=== PATIENT | female | born 1955 | race Caucasian/White ===

== ENCOUNTER → 2017-04-20 | Emergency (ER) | payer OTHER ==
[~2017-04-20] VITALS: Ht 157.5 cm; Wt 59.4 kg
[~2017-04-20] MED LIST: AMBIEN10 MG PO; AMBIEN5 MG PO; ASA81 MG; CATAFLAM50 MG PO; CIPROFLOXACIN750 MG PO; CLONAZEPAM1 MG PO; CLONAZEPAM2 MG PO; CYMBALTA20 MG PO; DOCUSATE SODIU100 MG PO; DOLOGEN CAPLET1 EACH PO; FOSAMAX5 MG; GABAPENTIN800 MG PO; INTESTINEX1 CAP PO; INTESTINEX680 MG PO; KETO10TA2 PO; KLONOPIN1 MG/TAB; LEVSIN/SL0.125 MG PO; LIPITOR40 MG PO; MEDROL4 MG PO; MUPIROCIN15 GM TP; ORPH100T PO; OXYCODONE; PERCOCET 5/3251 TAB PO; PHENOBARBITAL; PROTONIX20 MG; PROTONIX20 MG PO; PROVENTIL S1 ML/5 MG IH; PROVENTIL3 ML/2.5 M IH; RELPAX20 MG; REPLAX PO; SINGULAIR10 MG PO; SYMBICORT 16010.2 GM IH; TAGAMET300 MG PO; TIZANIDINE HCL2 MG PO; TUSICOF LIQUID120 ML PO; ULTRAM50 MG; ZANAFLEX2 M1 PO; ZANTAC 7575 MG PO; ZANTAC150 MG PO; ZANTAC300 MG PO; ZOCOR5 MG PO; [UNRECOGNIZED DRUG - OTHER]
== END | disposition home or self-care (01) ==
LOC: ER 15:02
DX: K29.70 Gastritis, unspecified, without bleeding (principal)

== ENCOUNTER 2017-04-24 08:53 | Emergency (ER) | payer OTHER ==
[~2017-04-24] VITALS: Ht 157.5 cm; Wt 59.4 kg
[2017-04-24] MEDS ORDERED: CARAFATE1 GM (09:09)
== END 2017-04-24 14:29 | disposition home or self-care (01) ==
LOC: ER 08:53
DX: K58.8 Other irritable bowel syndrome (principal); R10.84 Generalized abdominal pain

== ENCOUNTER 2017-06-15 22:39 | Emergency (ER) | payer OTHER ==
[~2017-06-15] VITALS: Ht 160 cm; Wt 52.2 kg
[~2017-06-15 22:39] MED LIST changes: +CARAFATE1 GM; +ORPHENADRINE C100 MG PO
[2017-06-16] MEDS ORDERED: PROTONIX40 MG PO (06:28)
[2017-06-16] MEDS ORDERED: PHENERGAN25 MG PO (06:28)
== END 2017-06-16 06:30 | disposition home or self-care (01) ==
LOC: ER 22:39
DX: K29.60 Other gastritis without bleeding (principal)

== ENCOUNTER 2017-06-17 10:02 | Emergency (ER) | payer OTHER ==
[~2017-06-17] VITALS: Ht 160 cm; Wt 59.0 kg
[~2017-06-17 10:02] MED LIST changes: +PHENERGAN25 MG PO; +PROTONIX40 MG PO
== END 2017-06-17 14:14 | disposition home or self-care (01) ==
LOC: ER 10:02
DX: K29.70 Gastritis, unspecified, without bleeding (principal)

== ENCOUNTER 2017-06-25 23:19 | Emergency (ER) | payer OTHER ==
[~2017-06-25] VITALS: Ht 160 cm; Wt 65.8 kg
== END 2017-06-26 09:16 | disposition home or self-care (01) ==
LOC: ER 23:19
DX: N20.0 Calculus of kidney (principal); R19.02 Left upper quadrant abdominal swelling, mass and lump; K58.9 Irritable bowel syndrome, unspecified; K29.70 Gastritis, unspecified, without bleeding; R10.12 Left upper quadrant pain; R10.32 Left lower quadrant pain; R11.0 Nausea

== ENCOUNTER 2017-08-09 09:31 | Emergency (ER) | payer OTHER ==
[~2017-08-09] VITALS: Ht 160 cm; Wt 58.1 kg
[2017-08-09] MEDS ORDERED: ZANTAC150 M3 (10:17)
[2017-08-09] MEDS ORDERED: PROBIOTIC1 EAC1 (10:17)
[2017-08-09] MEDS ORDERED: ZEGERID 20 MG1 EACH (10:17)
[2017-08-09] MEDS ORDERED: CRESTOR20 MG (10:18)
== END 2017-08-09 13:30 | disposition home or self-care (01) ==
LOC: ER 09:31
DX: K29.60 Other gastritis without bleeding (principal); R51 Headache; F41.8 Other specified anxiety disorders

== ENCOUNTER → 2017-08-16 | Emergency (ER) | payer OTHER ==
[~2017-08-16] VITALS: Ht 160 cm; Wt 58.1 kg
[~2017-08-16] MED LIST changes: +CRESTOR20 MG; +PROBIOTIC1 EAC1; +SINGULAIR10 MG; +ZANTAC150 M3; +ZEGERID 20 MG1 EACH
== END | disposition home or self-care (01) ==
LOC: ER 17:47
DX: K29.60 Other gastritis without bleeding (principal)

== ENCOUNTER 2017-09-01 10:35 | Emergency (ER) | payer OTHER ==
[~2017-09-01] VITALS: Ht 152.4 cm; Wt 54.9 kg
== END 2017-09-01 15:57 | disposition home or self-care (01) ==
LOC: ER 10:35
DX: K29.00 Acute gastritis without bleeding (principal)

== ENCOUNTER → 2017-09-03 | Emergency (ER) | payer OTHER ==
[~2017-09-03] VITALS: Ht 170.2 cm; Wt 63.5 kg
== END | disposition home or self-care (01) ==
LOC: ER 10:57
DX: K29.00 Acute gastritis without bleeding (principal)

== ENCOUNTER 2017-09-22 17:06 | Emergency (ER) | payer OTHER ==
[~2017-09-22] VITALS: Ht 160 cm; Wt 54.0 kg
== END 2017-09-22 19:54 | disposition home or self-care (01) ==
LOC: ER 17:06
DX: N30.81 Other cystitis with hematuria (principal)

== ENCOUNTER 2017-11-02 10:53 | Emergency (ER) | payer OTHER ==
[~2017-11-02] VITALS: Ht 152.4 cm; Wt 52.2 kg
== END 2017-11-02 16:55 | disposition home or self-care (01) ==
LOC: ER 10:53
DX: R51 Headache (principal); R11.0 Nausea

== ENCOUNTER 2017-11-03 12:31 | Emergency (ER) | payer OTHER ==
[~2017-11-03] VITALS: Ht 160 cm; Wt 54.4 kg
== END 2017-11-03 16:37 | disposition home or self-care (01) ==
LOC: ER 12:31
DX: K21.9 Gastro-esophageal reflux disease without esophagitis (principal)

== ENCOUNTER 2017-11-11 16:48 | Emergency (ER) | payer OTHER ==
[~2017-11-11] VITALS: Ht 160 cm; Wt 54.0 kg
== END 2017-11-11 20:08 | disposition home or self-care (01) ==
LOC: ER 16:48
DX: K29.60 Other gastritis without bleeding (principal); K58.8 Other irritable bowel syndrome; M54.5 Low back pain

== ENCOUNTER 2017-11-18 17:09 | Emergency (ER) | payer OTHER ==
[~2017-11-18] VITALS: Ht 157.5 cm; Wt 54.4 kg
== END 2017-11-18 19:15 | disposition home or self-care (01) ==
LOC: ER 17:09
DX: K29.70 Gastritis, unspecified, without bleeding (principal); M54.89 Other dorsalgia

== ENCOUNTER 2017-12-04 07:45 | Emergency (ER) | payer OTHER ==
[~2017-12-04] VITALS: Ht 160 cm; Wt 54.4 kg
== END 2017-12-04 16:29 | disposition home or self-care (01) ==
LOC: ER 07:45
DX: K52.89 Other specified noninfective gastroenteritis and colitis (principal)

== ENCOUNTER 2017-12-28 15:53 | Emergency (ER) | payer OTHER ==
[~2017-12-28] VITALS: Ht 160 cm; Wt 54.4 kg
== END 2017-12-28 18:53 | disposition home or self-care (01) ==
LOC: ER 15:53
DX: M94.0 Chondrocostal junction syndrome [Tietze] (principal)

== ENCOUNTER 2018-01-02 09:09 | Emergency (ER) | payer OTHER ==
[~2018-01-02] VITALS: Ht 160 cm; Wt 56.7 kg
== END 2018-01-02 10:23 | disposition home or self-care (01) ==
LOC: ER 09:09
DX: M94.0 Chondrocostal junction syndrome [Tietze] (principal); R51 Headache

== ENCOUNTER 2018-01-04 10:56 | Outpatient (CLI) | payer OTHER | END 2018-01-04 16:52 | disposition home or self-care (01) | LOC: RAD 10:56 | DX: N20.0 Calculus of kidney (principal) ==

== ENCOUNTER 2018-01-04 14:47 | Outpatient (CLI) | payer OTHER | END 2018-01-04 14:54 | disposition home or self-care (01) | LOC: RAD 14:47 | DX: J44.9 Chronic obstructive pulmonary disease, unspecified (principal) ==

== ENCOUNTER 2018-01-07 10:10 | Emergency (ER) | payer OTHER ==
[~2018-01-07] VITALS: Ht 160 cm; Wt 54.4 kg
== END 2018-01-07 16:46 | disposition home or self-care (01) ==
LOC: ER 10:10
DX: K29.70 Gastritis, unspecified, without bleeding (principal)

== ENCOUNTER → 2018-02-08 | Emergency (ER) | payer OTHER ==
[~2018-02-08] VITALS: Ht 160 cm; Wt 54.9 kg
[~2018-02-08] MED LIST changes: +METOPROLOL ER-1 EAC2; +TUSSI PRES-B L120 M1 PO; +ZITHROMAX TRI-500 MG PO
== END | disposition home or self-care (01) ==
LOC: ER 09:40
DX: B34.9 Viral infection, unspecified (principal)

== ENCOUNTER 2018-02-27 09:10 | Emergency (ER) | payer OTHER ==
[~2018-02-27] VITALS: Ht 160 cm; Wt 54.4 kg
== END 2018-02-27 11:03 | disposition home or self-care (01) ==
LOC: ER 09:10
DX: J06.9 Acute upper respiratory infection, unspecified (principal)

== ENCOUNTER 2018-03-01 07:51 | Emergency (ER) | payer OTHER ==
[~2018-03-01] VITALS: Ht 160 cm; Wt 54.4 kg
[2018-03-01] MEDS ORDERED: SYMBICORT 16010.2 GM (08:00)
[2018-03-01] MEDS ORDERED: RELPAX40 MG PO (08:00)
[2018-03-01] MEDS ORDERED: PHENERGAN25 MG PO (08:01)
[2018-03-01] MEDS ORDERED: ZANTAC150 M3 PO (08:01)
== END 2018-03-01 11:46 | disposition home or self-care (01) ==
LOC: ER 07:51
DX: B34.9 Viral infection, unspecified (principal)

== ENCOUNTER 2018-06-07 06:07 | Emergency (ER) | payer OTHER ==
[~2018-06-07] VITALS: Ht 160 cm; Wt 61.2 kg
[~2018-06-07 06:07] MED LIST changes: +RELPAX40 MG PO; +SYMBICORT 16010.2 GM; +ZANTAC150 M3 PO
== END 2018-06-07 11:04 | disposition home or self-care (01) ==
LOC: ER 06:07
DX: K52.89 Other specified noninfective gastroenteritis and colitis (principal)

== ENCOUNTER 2018-11-07 06:19 | Emergency (ER) | payer OTHER ==
[~2018-11-07] VITALS: Ht 160 cm; Wt 58.1 kg
[~2018-11-07 06:19] MED LIST changes: +TRAMADOL HCL50 MG PO
== END 2018-11-07 14:06 | disposition home or self-care (01) ==
LOC: ER 06:19
DX: M54.89 Other dorsalgia (principal); K52.89 Other specified noninfective gastroenteritis and colitis

== ENCOUNTER 2018-12-23 06:57 | Emergency (ER) | payer OTHER ==
[~2018-12-23] VITALS: Ht 160 cm; Wt 64.4 kg
== END 2018-12-23 17:50 | disposition home or self-care (01) ==
LOC: ER 06:57
DX: G44.229 Chronic tension-type headache, not intractable (principal); R05 Cough; L92.8 Other granulomatous disorders of the skin and subcutaneous tissue; R91.1 Solitary pulmonary nodule

== ENCOUNTER 2019-05-20 11:53 | Emergency (ER) | payer OTHER ==
[~2019-05-20] VITALS: Ht 160 cm; Wt 61.2 kg
== END 2019-05-20 19:44 | disposition home or self-care (01) ==
LOC: ER 11:53
DX: K29.60 Other gastritis without bleeding (principal); M54.5 Low back pain

== ENCOUNTER 2019-05-26 09:23 | Emergency (ER) | payer OTHER ==
[~2019-05-26] VITALS: Ht 160 cm; Wt 61.2 kg
[2019-05-26] MEDS ORDERED: TOPROL XL25 M1 (09:46)
[2019-05-26] MEDS ORDERED: CRESTOR5 MG (09:47)
[2019-05-26] MEDS ORDERED: CIPRO500 MG PO (14:51)
[2019-05-26] MEDS ORDERED: PEPCID AC20 MG PO (14:51)
== END 2019-05-26 15:38 | disposition home or self-care (01) ==
LOC: ER 09:23
DX: R30.0 Dysuria (principal); M54.5 Low back pain; M54.2 Cervicalgia

== ENCOUNTER 2019-06-24 14:06 | Emergency (ER) | payer OTHER ==
[~2019-06-24] VITALS: Ht 160 cm; Wt 59.0 kg
[~2019-06-24 14:06] MED LIST changes: +CIPRO500 MG PO; +CRESTOR5 MG; +PEPCID AC20 MG PO; +TOPROL XL25 M1
[2019-06-24] MEDS ORDERED: TENORMIN25 MG PO (14:41)
== END 2019-06-24 18:18 | disposition home or self-care (01) ==
LOC: ER 14:06
DX: J06.9 Acute upper respiratory infection, unspecified (principal); B34.9 Viral infection, unspecified

== ENCOUNTER → 2019-07-06 | Emergency (ER) | payer OTHER ==
[~2019-07-06] VITALS: Ht 160 cm; Wt 59.0 kg
[~2019-07-06] MED LIST changes: +TENORMIN25 MG PO
== END | disposition home or self-care (01) ==
LOC: ER 11:04
DX: K52.89 Other specified noninfective gastroenteritis and colitis (principal)

== ENCOUNTER 2019-08-21 09:09 | Emergency (ER) | payer OTHER ==
[~2019-08-21] VITALS: Ht 160 cm; Wt 61.2 kg
[2019-08-21] MEDS ORDERED: DICY20TA PO (09:54)
== END 2019-08-21 13:13 | disposition home or self-care (01) ==
LOC: ER 09:09
DX: R06.02 Shortness of breath (principal); R53.81 Other malaise

== ENCOUNTER 2019-09-06 10:58 | Emergency (ER) | payer OTHER ==
[~2019-09-06] VITALS: Ht 165.1 cm; Wt 81.6 kg
[~2019-09-06 10:58] MED LIST changes: +DICY20TA PO
[2019-09-06] MEDS ORDERED: KETO10TA2 PO (14:26)
[2019-09-06] MEDS ORDERED: NORFLEX100MG PO (14:26)
[2019-09-06] MEDS ORDERED: PEPCID AC20 MG PO (14:26)
== END 2019-09-06 14:40 | disposition home or self-care (01) ==
LOC: ER 10:58
DX: S70.12XA Contusion of left thigh, initial encounter (principal); S50.12XA Contusion of left forearm, initial encounter; S00.83XA Contusion of other part of head, initial encounter; M79.605 Pain in left leg; K29.60 Other gastritis without bleeding; Z03.818 Encounter for observation for suspected exposure to other biological agents ruled out; R53.81 Other malaise; W18.09XA Striking against other object with subsequent fall, initial encounter; Y93.89 Activity, other specified; Y92.89 Other specified places as the place of occurrence of the external cause; Y99.8 Other external cause status

== ENCOUNTER 2019-10-29 09:22 | Emergency (ER) | payer OTHER ==
[~2019-10-29] VITALS: Ht 160 cm; Wt 70.3 kg
[~2019-10-29 09:22] MED LIST changes: +NORFLEX100MG PO
== END 2019-10-29 12:05 | disposition home or self-care (01) ==
LOC: ER 09:22
DX: K29.60 Other gastritis without bleeding (principal); G89.11 Acute pain due to trauma; R51 Headache

== ENCOUNTER 2019-12-14 12:15 | Emergency (ER) | payer OTHER ==
[~2019-12-14] VITALS: Ht 160 cm; Wt 70.3 kg
== END 2019-12-14 15:59 | disposition home or self-care (01) ==
LOC: ER 12:15
DX: R53.81 Other malaise (principal); Z03.818 Encounter for observation for suspected exposure to other biological agents ruled out

== ENCOUNTER 2020-02-14 09:27 | Emergency (ER) | payer OTHER ==
[~2020-02-14] VITALS: Ht 154.9 cm; Wt 68.0 kg
[~2020-02-14 09:27] MED LIST changes: +ACETAMINOPHEN-1 EAC2 PO
[2020-02-14] MEDS ORDERED: CLONAZEPAM2 MG PO (09:36)
[2020-02-14] MEDS ORDERED: BELSOMRA10 MG PO (09:36)
[2020-02-14] MEDS ORDERED: ALENDRONATE SOD70 MG PO (09:36)
[2020-02-14] MEDS ORDERED: ARIPIPRAZOLE10 MG PO (09:36)
[2020-02-14] MEDS ORDERED: VITAMIN D3250 MCG PO (09:38)
[2020-02-14] MEDS ORDERED: NORFLEX100MG PO (14:23)
[2020-02-14] MEDS ORDERED: MEDROLPACK PO (14:36)
== END 2020-02-14 15:00 | disposition home or self-care (01) ==
LOC: ER 09:27
DX: G89.11 Acute pain due to trauma (principal); M54.5 Low back pain; M54.6 Pain in thoracic spine; M54.2 Cervicalgia

== ENCOUNTER 2020-03-02 09:49 | Emergency (ER) | payer OTHER ==
[~2020-03-02] VITALS: Ht 160 cm; Wt 68.0 kg
[~2020-03-02 09:49] MED LIST changes: +ALENDRONATE SOD70 MG PO; +ARIPIPRAZOLE10 MG PO; +BELSOMRA10 MG PO; +MEDROLPACK PO; +VITAMIN D3250 MCG PO
[2020-03-02] MEDS ORDERED: REPLAX (10:18)
[2020-03-08] MEDS ORDERED: PEPCID (17:31)
[2020-03-08] MEDS ORDERED: ALBUTEROL (17:31)
== END 2020-03-02 13:27 | disposition home or self-care (01) ==
LOC: ER 09:49
DX: K52.9 Noninfective gastroenteritis and colitis, unspecified (principal); Z03.818 Encounter for observation for suspected exposure to other biological agents ruled out

== ENCOUNTER → 2020-03-08 | Emergency (ER) | payer OTHER ==
[~2020-03-08] VITALS: Ht 160 cm; Wt 68.0 kg
[~2020-03-08] MED LIST changes: +ALBUTEROL; +MOBIC15 MG PO; +NORFLEC; +PEPCID; +REPLAX
== END | disposition left against medical advice (07) ==
LOC: ER 16:55
DX: R10.84 Generalized abdominal pain (principal); R07.89 Other chest pain; R11.2 Nausea with vomiting, unspecified; R19.7 Diarrhea, unspecified; R53.81 Other malaise

== ENCOUNTER 2020-03-10 09:45 | Emergency (ER) | payer OTHER ==
[~2020-03-10] VITALS: Ht 160 cm; Wt 63.5 kg
[~2020-03-10 09:45] MED LIST changes: -MOBIC15 MG PO; -NORFLEC
[2020-03-11] MEDS ORDERED: MOBIC15 MG PO (06:38)
[2020-03-11] MEDS ORDERED: CIPRO500 MG PO (06:38)
== END 2020-03-11 06:45 | disposition home or self-care (01) ==
LOC: ER 09:45
DX: N20.0 Calculus of kidney (principal); K59.09 Other constipation; Z03.818 Encounter for observation for suspected exposure to other biological agents ruled out

== ENCOUNTER 2020-03-24 05:58 | Emergency (ER) | payer OTHER ==
[~2020-03-24] VITALS: Ht 160 cm; Wt 68.0 kg
[~2020-03-24 05:58] MED LIST changes: +MOBIC15 MG PO
[2020-03-24] MEDS ORDERED: NORFLEC (06:22)
== END 2020-03-24 14:09 | disposition home or self-care (01) ==
LOC: ER 05:58
DX: R10.32 Left lower quadrant pain (principal)

== ENCOUNTER 2020-04-24 07:54 | Emergency (ER) | payer OTHER ==
[~2020-04-24] VITALS: Ht 162.6 cm; Wt 70.3 kg
[~2020-04-24 07:54] MED LIST changes: +NORFLEC
[2020-04-24] MEDS ORDERED: FAMOTIDINE40 MG PO (08:06)
[2020-04-24] MEDS ORDERED: ARIPIPRAZOLE10 MG PO (08:07)
[2020-04-24] MEDS ORDERED: RESTORIL30 MG PO (08:07)
[2020-05-08] MEDS ORDERED: PEPCID AC20 MG PO (23:19)
[2020-05-08] MEDS ORDERED: PROTONIX40 MG PO (23:19)
== END 2020-04-24 13:20 | disposition home or self-care (01) ==
LOC: ER 07:54
DX: K29.00 Acute gastritis without bleeding (principal); Z03.818 Encounter for observation for suspected exposure to other biological agents ruled out; R10.13 Epigastric pain

== ENCOUNTER 2020-04-29 05:40 | Emergency (ER) | payer OTHER ==
[~2020-04-29] VITALS: Ht 160 cm; Wt 68.9 kg
[~2020-04-29 05:40] MED LIST changes: +FAMOTIDINE40 MG PO; +RESTORIL30 MG PO
[2020-05-08] MEDS ORDERED: PROTONIX40 MG PO (23:19)
[2020-05-08] MEDS ORDERED: PEPCID AC20 MG PO (23:19)
== END 2020-04-29 11:09 | disposition home or self-care (01) ==
LOC: ER 05:40
DX: J44.9 Chronic obstructive pulmonary disease, unspecified (principal); K29.60 Other gastritis without bleeding; Z03.818 Encounter for observation for suspected exposure to other biological agents ruled out; R06.02 Shortness of breath; R05 Cough; R53.83 Other fatigue; F32.89 Other specified depressive episodes

== ENCOUNTER 2020-05-04 10:27 | Emergency (ER) | payer OTHER ==
[~2020-05-04] VITALS: Ht 160 cm; Wt 68.0 kg
[2020-05-04] MEDS ORDERED: AZITHROMYCIN250 MG PO (14:22)
[2020-05-05] MEDS ORDERED: CRESTOR10 MG (10:00)
[2020-05-05] MEDS ORDERED: RELPAX40 MG (10:01)
[2020-05-08] MEDS ORDERED: PROTONIX40 MG PO (23:19)
[2020-05-08] MEDS ORDERED: PEPCID AC20 MG PO (23:19)
== END 2020-05-04 14:48 | disposition home or self-care (01) ==
LOC: ER 10:27
DX: R50.9 Fever, unspecified (principal); R10.84 Generalized abdominal pain; R51.9 Headache, unspecified; F41.8 Other specified anxiety disorders; Z03.818 Encounter for observation for suspected exposure to other biological agents ruled out

== ENCOUNTER 2020-05-05 09:31 | Emergency (ER) | payer OTHER ==
[~2020-05-05] VITALS: Ht 160 cm; Wt 68.0 kg
[~2020-05-05 09:31] MED LIST changes: +AZITHROMYCIN250 MG PO
[2020-05-05] MEDS ORDERED: CRESTOR10 MG (10:00)
[2020-05-05] MEDS ORDERED: RELPAX40 MG (10:01)
[2020-05-08] MEDS ORDERED: PEPCID AC20 MG PO (23:19)
[2020-05-08] MEDS ORDERED: PROTONIX40 MG PO (23:19)
== END 2020-05-05 11:20 | disposition home or self-care (01) ==
LOC: ER 09:31
DX: K29.50 Unspecified chronic gastritis without bleeding (principal)

== ENCOUNTER 2020-05-07 04:39 | Emergency (ER) | payer OTHER ==
[~2020-05-07] VITALS: Ht 160 cm; Wt 68.0 kg
[~2020-05-07 04:39] MED LIST changes: +CRESTOR10 MG; +RELPAX40 MG
[2020-05-07] MEDS ORDERED: PEPCID AC20 MG PO (10:02)
[2020-05-07] MEDS ORDERED: PHENERGAN25 MG PO (10:02)
[2020-05-08] MEDS ORDERED: PEPCID AC20 MG PO (23:19)
[2020-05-08] MEDS ORDERED: PROTONIX40 MG PO (23:19)
== END 2020-05-07 10:42 | disposition home or self-care (01) ==
LOC: ER 04:39
DX: K29.60 Other gastritis without bleeding (principal); R10.33 Periumbilical pain; Z03.818 Encounter for observation for suspected exposure to other biological agents ruled out

== ENCOUNTER → 2020-05-08 | Emergency (ER) | payer OTHER ==
[~2020-05-08] VITALS: Ht 160 cm; Wt 68.0 kg
[~2020-05-08] MED LIST changes: +CARAFATE1 GM PO; +CELEBREX100 MG PO
== END | disposition home or self-care (01) ==
LOC: ER 16:35
DX: K29.60 Other gastritis without bleeding (principal)

== ENCOUNTER 2020-05-09 10:34 | Emergency (ER) | payer OTHER ==
[~2020-05-09] VITALS: Ht 160 cm; Wt 68.0 kg
[~2020-05-09 10:34] MED LIST changes: -CARAFATE1 GM PO; -CELEBREX100 MG PO
== END 2020-05-09 14:08 | disposition home or self-care (01) ==
LOC: ER 10:34
DX: R10.84 Generalized abdominal pain (principal); F32.9 Major depressive disorder, single episode, unspecified

== ENCOUNTER 2020-05-12 09:08 | Emergency (ER) | payer OTHER ==
[~2020-05-12] VITALS: Ht 160 cm; Wt 68.0 kg
== END 2020-05-12 11:38 | disposition home or self-care (01) ==
LOC: ER 09:08
DX: K29.60 Other gastritis without bleeding (principal)

== ENCOUNTER 2020-05-17 02:49 | Emergency (ER) | payer OTHER ==
[~2020-05-17] VITALS: Ht 162.6 cm; Wt 72.6 kg
== END 2020-05-17 09:49 | disposition home or self-care (01) ==
LOC: ER 02:49
DX: K52.9 Noninfective gastroenteritis and colitis, unspecified (principal); K21.9 Gastro-esophageal reflux disease without esophagitis

== ENCOUNTER 2020-05-18 08:41 | Emergency (ER) | payer OTHER ==
[~2020-05-18] VITALS: Ht 160 cm; Wt 68.9 kg
== END 2020-05-18 13:11 | disposition home or self-care (01) ==
LOC: ER 08:41
DX: R10.13 Epigastric pain (principal); Z03.818 Encounter for observation for suspected exposure to other biological agents ruled out

== ENCOUNTER 2020-05-20 10:06 | Emergency (ER) | payer OTHER ==
[~2020-05-20] VITALS: Ht 160 cm; Wt 68.5 kg
[2020-05-20] MEDS ORDERED: CELEBREX100 MG PO (16:58)
[2020-05-20] MEDS ORDERED: PEPCID AC20 MG PO (16:58)
[2020-05-20] MEDS ORDERED: CARAFATE1 GM PO (16:58)
== END 2020-05-20 18:36 | disposition home or self-care (01) ==
LOC: ER 10:06
DX: K29.70 Gastritis, unspecified, without bleeding (principal); E86.0 Dehydration

== ENCOUNTER 2020-05-23 12:06 | Inpatient (IN) | payer OTHER ==
[~2020-05-23] VITALS: Ht 160 cm; Wt 77.1 kg
[~2020-05-23 12:06] MED LIST changes: +CARAFATE1 GM PO; +CELEBREX100 MG PO
== END 2020-06-08 15:00 | disposition expired | DRG 870 ==
LOC: ER 12:06 → ICU-2 05-24 00:37 → ICU 05-31 14:59
PROVIDERS: ADMIT Internal Medicine; ATTEND Internal Medicine
PROC: 0BH17EZ Insertion of Endotracheal Airway into Trachea, Via Natural or Artificial Opening (ICD-10-PCS; principal; 2020-05-23)
PROC: 5A1955Z Respiratory Ventilation, Greater than 96 Consecutive Hours (ICD-10-PCS; 2020-05-23)
PROC: 4A033R1 Measurement of Arterial Saturation, Peripheral, Percutaneous Approach (ICD-10-PCS; 2020-05-23)
PROC: 3E0F7SF Introduction of Other Gas into Respiratory Tract, Via Natural or Artificial Opening (ICD-10-PCS; 2020-05-23)
PROC: BW21ZZZ Computerized Tomography (CT Scan) of Abdomen and Pelvis (ICD-10-PCS; 2020-05-23)
PROC: 02HV33Z Insertion of Infusion Device into Superior Vena Cava, Percutaneous Approach (ICD-10-PCS; 2020-05-24)
PROC: 3E0436Z Introduction of Nutritional Substance into Central Vein, Percutaneous Approach (ICD-10-PCS; 2020-05-24)
PROC: CB2YYZZ Tomographic (Tomo) Nuclear Medicine Imaging of Respiratory System using Other Radionuclide (ICD-10-PCS; 2020-05-24)
PROC: 30233N1 Transfusion of Nonautologous Red Blood Cells into Peripheral Vein, Percutaneous Approach (ICD-10-PCS; 2020-05-27)
DX: A41.9 Sepsis, unspecified organism (principal); J69.0 Pneumonitis due to inhalation of food and vomit; J96.00 Acute respiratory failure, unspecified whether with hypoxia or hypercapnia; R65.21 Severe sepsis with septic shock; J15.0 Pneumonia due to Klebsiella pneumoniae; K56.690 Other partial intestinal obstruction; N17.8 Other acute kidney failure; E87.2 Acidosis; E87.1 Hypo-osmolality and hyponatremia; E87.4 Mixed disorder of acid-base balance; J44.9 Chronic obstructive pulmonary disease, unspecified; K21.9 Gastro-esophageal reflux disease without esophagitis; E86.0 Dehydration; E55.9 Vitamin D deficiency, unspecified; M81.0 Age-related osteoporosis without current pathological fracture; E87.6 Hypokalemia; D64.9 Anemia, unspecified; D69.59 Other secondary thrombocytopenia; K29.50 Unspecified chronic gastritis without bleeding; Z20.822 Contact with and (suspected) exposure to COVID-19